=== PATIENT | male | born 1980 | race African-American/Black ===

== ENCOUNTER 2017-11-28 13:36 | Emergency (ER) | payer OTHER ==
[~2017-11-28] VITALS: Ht 177.8 cm; Wt 72.6 kg
[2017-11-28 13:57] VITALS: BP 148/85
[2017-11-28] MEDS ORDERED: ONDANSETRON 4 MG TAB.RAPDIS SL ONE (15:30)
[2017-11-28] MEDS ORDERED: HYDROCODONE/APAP 5/325MG 1 EACH TABLET PO ONE (15:30)
[2017-11-28] MEDS ORDERED: HYDROCODONE/APAP 5/325MG 1 EACH TABLET ONE (15:58)
[2017-11-28] MEDS ORDERED: ONDANSETRON 4 MG TAB.RAPDIS ONE (15:58)
[2017-11-28] MEDS ORDERED: WATER FOR INJECTION,STERILE 10 ML ONE (15:59)
== END 2017-11-28 16:57 | disposition home or self-care (01) ==
LOC: ER 13:39
DX: M25.531 Pain in right wrist (principal); M54.5 Low back pain
CPT/HCPCS: 72110-TC; 73110; A4606; Q0162; Z7610